=== PATIENT | male | born 2000 | race Caucasian/White ===

== ENCOUNTER 2025-07-26 12:57 | Emergency (ER) | payer OTHER ==
[~2025-07-26] VITALS: Ht 165.1 cm; Wt 68.0 kg
--- NOTE | 2025-07-26 14:43 | DVH ---
EXAM: XY L HAND 3V XRAY REASON FOR EXAM: crushed injury 1 wk ago (ring finger) TECHNIQUE: PA, lateral, and oblique views of the left hand are submitted for review. COMPARISON: None FINDINGS: The bones demonstrate normal mineralization. There is no acute fracture or dislocation. The re is moderate focal soft tissue swelling at the dorsum of the distal aspect of the 4th finger. IMPRESSION: No acute fracture or dislocation.
--- NOTE | 2025-07-26 14:56 | ED.PDOC ---
Musculoskeletal HPI Comments 25-year-old male with a pertinent MHx presents with a chief complaint of a subungual hematoma to the left 4th distal phalanx Injury occurred July 21, 2025 when he smashed his finger on a metal door at work Initially did not seek medical attention or drainage two days later he noticed the swelling and increased affected area Currently rated at 7/10 No other complaint or concern Denies numbness Chief Complaint: Upper Extremity Time Seen by MD: 13:02 Reviewed Notes: Nurses Notes, Medications, Allergies Allergies: Coded Allergies: NO KNOWN ALLERGIES (Unverified , 07/26/25) Information Source: Patient Mode of Arrival: Ambulatory Past Medical History PAST MEDICAL HISTORY: Denies Surgical History: Denies all surgeries Family History Family History: Reviewed,noncontributory to illness All Other Systems: Reviewed and Negative (Per HPI) Physical Exam General Appearance: No Apparent Distress, Normal HEENT: Normal ENT Inspection, Pharynx Normal, TMs Normal Neck: Full Range of Motion, Non-Tender, Normal, Normal Inspection Respiratory: Chest Non-Tender, Lungs Clear, No Accessory Muscle Use, No Respiratory Distress, Normal Breath Sounds Cardiovascular: No Murmur, No Gallop, Regular Rate/Rhythm Breast Exam: Deferred Gastrointestinal: No Organomegaly, Non Tender, No Pulsatile Mass, Normal Bowel Sounds, Soft Genitalia: Deferred Pelvic: Deferred Rectal: Deferred Extremities: No calf tenderness, Normal capillary refill, Normal inspection, Normal range of motion, Non-tender, No pedal edema Musculoskeletal : Apperance: Normal Neurologic: 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 Was a procedure done?: Yes Sedation Sedation?: No Nail Removal Nail Removal Location: 4th Finger nail Nail Removal preparation: Betadine Informed Consent: Yes Risks/Benefits/alt. described: Yes UTO Consent Trephination Differential Diagnosis EXT Differential Diagnosis: Fracture, Other X-Ray, Labs, Meds, VS Vital Signs Date Time Temp Pulse Resp B/P (MAP) Pulse Ox O2 Delivery O2 Flow Rate FiO2 07/26/25 12:58 98.7 83 16 126/88 98 98.7 X-Ray, Labs, Meds, VS Comment On reevaluation, patient had symptomatic improvement. Patient is stable for discharge at this time. External notes reviewed. Test results and diagnostic imaging interpreted. All diagnostic findings, discharge care, education and instructions provided Follow-up with PCP in 2 to 3 days Patient verbalized understanding and agreed to treatment plan Vital signs stable, afebrile, no acute distress noted Patient ambulatory with strong steady gait Advised to return precautions for any new or worsening symptoms, return to ER immediately for re-evaluation Patient is aware that the purpose of this visit was for an acute medical emergency requiring emergent stabilization. Chronic conditions, including malignancies have not been ruled out. Patient is instructed to follow up with PCP as directed and discharge instructions for continued care and workup. If unable to arrange follow-up, patient is to return to the emergency department for reassessment. Patient (parent or legal guardian if applicable) was given verbal and written discharge instructions and acknowledges understanding. Time of 1ST Reevaluation: 14:55 Reevaluation 1ST: Improved Patient Education/Counseling: Diagnosis, Treatment Family Education/Counseling: Diagnosis, Treatment Departure 1 Departure Time of Disposition: 14:56 Impression: Primary Impression: Subungual hematoma Disposition: 01 HOME / SELF CARE / HOMELESS Condition: Stable Discharged With: Self Critical Care Note Critical Care Time?: No Stability Stability form required: No Heart Score Heart Score: Heart Score Response (Comments) Value History N/A 0 EKG N/A 0 Age N/A 0 Risk Factors N/A 0 Troponin N/A 0 Total 0 PAYAL DICK NP Jul 26, 2025 14:56
[2025-07-26 15:06] VITALS: BP 122/62; PULSE 62; RESP 16; TEMP 98.2; O2SAT 98
== END 2025-07-26 15:17 | disposition home or self-care (01) ==
LOC: ER 12:57
DX: S60.142A Contusion of left ring finger with damage to nail, initial encounter (principal); W23.0XXA Caught, crushed, jammed, or pinched between moving objects, initial encounter; Y93.89 Activity, other specified; Y92.89 Other specified places as the place of occurrence of the external cause; Y99.8 Other external cause status
CPT/HCPCS: 11730; 73130; 82947; 82962